=== PATIENT | male | born 1955 | race Caucasian/White ===

== ENCOUNTER 2016-11-24 18:10 | Emergency (ER) | payer BC ==
[~2016-11-24] VITALS: Ht 193 cm; Wt 102.1 kg
[~2016-11-24 18:10] MED LIST: AMLODIPINE BES2.5 MG ORAL; BACTRIM DS TAB1 EAC1 ORAL; IBUPROFEN600 MG ORAL; PRAVASTATIN SOD20 M1 ORAL; TRUVADA 200 MG1 EAC1 ORAL
[2016-11-24 18:58] VITALS: BP 148/79
--- NOTE | 2016-11-24 19:03 | Emergency Room Report ---
History of Present Illness General Chief Complaint: Multiple Trauma/Fall Present Illness HPI Patient is a 61-year-old male presents today with mechanical fall. Patient states he was walking down marble stairs when he slipped and fell landing on his right buttocks. He denies any head trauma or loss of consciousness. Patient states he is currently having minimal amount of pain but he is concerned that his right buttock has become increasingly firm. He has not taken medication for the pain. Denies numbness, tingling, loss of sensation Allergies: Coded Allergies: [place] (Verified Allergy, Unknown, 01/21/11) Patient History Reviewed Nursing Documentation: PMH: Agreed, PSxH: Agreed Nursing Documentation-PMH Hx Hypertension: Yes Review of Systems Musculoskeletal: Reports: muscle pain All Other Systems: negative except mentioned in HPI Physical Exam Vital Signs Date Time Temp Pulse Resp B/P (MAP) Pulse Ox O2 Delivery O2 Flow Rate FiO2 11/24/16 18:24 97.9 92 20 144/82 97 Room Air Sp02 EP Interpretation: reviewed, normal General Appearance: no apparent distress, alert, GCS 15, non-toxic Head: normocephalic, atraumatic Eyes: bilateral eye normal inspection, bilateral eye PERRL ENT: hearing grossly normal, normal pharynx, no angioedema, normal voice Neck: full range of motion, supple/symm/no masses Respiratory: chest non-tender, lungs clear, normal breath sounds, speaking full sentences Cardiovascular #1: regular rate, rhythm, no edema Cardiovascular #2: 2+ carotid (R), 2+ carotid (L), 2+ radial (R), 2+ radial (L) , 2+ dorsalis pedis (R), 2+ dorsalis pedis (L) Gastrointestinal: normal bowel sounds, non tender, soft, non-distended, no guarding, no rebound Rectal: deferred Genitourinary: normal inspection, no CVA tenderness Musculoskeletal: back normal, gait/station normal, normal range of motion, non- tender, other - no midline tenderness, no TTP over the hips or pelvis, large area of induration to right buttocs, no overlying skin changes Neurologic: alert, oriented x3, responsive, motor strength/tone normal, sensory intact, speech normal, other - 5/5 strength in bilateral lower extremities, NVI Psychiatric: judgement/insight normal, memory normal, mood/affect normal, no suicidal/homicidal ideation Reflexes: 3+ bicep (R), 3+ bicep (L), 3+ tricep (R), 3+ tricep (L), 3+ knee (R) , 3+ knee (L) Skin: normal color, no rash, warm/dry, well hydrated Lymphatic: no adenopathy Medical Decision Making PA Attestation supervising physician is Dr. Hopkins ER Course Patient is 7-year-old man who presents today status post mechanical fall. She is found to have a large area of induration in the right buttocks. There is however no overlying skin changes. Did discuss case with Dr. Scherer who personally evaluated the patient and performed an ultrasound procedure. No evidence of hematoma on ultrasound. Patient was likely a muscle contusion. Patient refusing pain medication in the ED and as a prescription. They given return precautions. Patient understands and is agreeable with plan. Last Vital Signs Date Time Temp Pulse Resp B/P (MAP) Pulse Ox O2 Delivery O2 Flow Rate FiO2 11/24/16 18:58 97.8 95 19 148/79 98 Room Air Status: improved Disposition: HOME, SELF-CARE Condition: Stable Yessica Han Nov 24, 2016 19:03
[2016-11-24 19:12] VITALS: BP 148/79
== END 2016-11-24 20:45 | disposition home or self-care (01) ==
LOC: EMR 20:43
DX: R23.4 Changes in skin texture (principal); M54.5 Low back pain; W10.9XXA Fall (on) (from) unspecified stairs and steps, initial encounter; Y92.89 Other specified places as the place of occurrence of the external cause; I10 Essential (primary) hypertension
CPT/HCPCS: 99282